=== PATIENT | female | born 1975 | race Caucasian/White ===

== ENCOUNTER 2020-08-09 14:53 | Emergency (ER) | payer MEDICAID, SELFPAY ==
--- NOTE | 2020-08-09 14:58 | HMH.EDGENADL ---
ED Disposition Clinical Impression: Viral illness Disposition: Home, Self-Care Condition on Discharge: Good Instructions: DI for Diarrhea and Traveler's Diarrhea -- Adult, DI for Diarrhea and Traveler's Diarrhea -- Child, DI for Nausea -- Adult, DI for Nausea -- Child Referrals: Maegan Hanley [Primary Care Provider] - 3 days - Critical Care Critical Care Time: No Attestation: On 08/09/20, the high probability of a clinically significant, sudden or life threatening deterioration of the following system(s) required my full and direct attention, intervention and personal management. The time I documented below is in addition to time spent performing reported procedures but includes the following listed in this critical care notation. Medical Decision Making - Telly Inquiry Pt receiving controlled substance: No Vital Signs: 08/09/20 15:02 Temperature 98.0 F Temperature Source Oral Pulse Rate [Radial] 98 H Respiratory Rate 18 Blood Pressure [Right Arm] 141/100 H Blood Pressure Mean [Right Arm] 113 Blood Pressure Source [Right Arm] Automatic Cuff Blood Pressure Position [Right Arm] Sitting 02 Sat by Pulse Oximetry 98 Oxygen Delivery Method Room Air Orders (Tests/Meds): ORDERS Category Date Time Status Full Resp Panel w/COVID ([facility]) Routine Lab 08/09/20 15:10 Received Medical Decision Narrative: 45yo F presents after Covid exposure with signs and symptoms concerning for Covid. Full respiratory viral panel has been obtained and sent to the lab. The patient is otherwise stable and appropriate for discharge home at this time. She will be discharged and we will call her with the results of her test. Also discussed with the patient the importance of using her COPD inhalers as directed as she is currently very wheezy. Patient reports she understands the importance of this and will try to do better. General Adult HPI - General Stated complaint: v/d, soa, cough Time Seen by Provider: 08/09/20 14:58 Mode of Arrival: Ambulatory Source of Information: Patient Limitations: No Limitations - History of Present Illness HPI narrative: 45yo F with COPD that continues to smoke roughly 1 pack/day presents the emergency department secondary to fever, nausea/vomiting/diarrhea, shortness of breath. Patient reports all of her coworkers have tested positive for coronavirus recently. Symptoms have been present since last weekend. Nothing is improving her condition. - Related Data Allergies Allergy/AdvReac Type Severity Reaction Status Date / Time No Known Allergies Allergy Verified 08/09/20 15:07 [facility] History - Hepatitis A Screen Drug use history?: No Attestation statement:: This patient has been screened for Hepatitis A risk factors. Medical History: Reports:: Chronic Obstructive Pulmonary Disease (COPD) ROS Obtained: Yes All systems reviewed & no additional complaints - Constitutional Constitutional: Reports anorexia, Reports body ache, Reports chills - Respiratory Respiratory: Yes shortness of breath - Gastrointestinal Gastrointestingal: Reports: abdominal pain, diarrhea, nausea, vomiting Physical Exam - General General appearance: alert, in no apparent distress - Head Head exam: atraumatic, normocephalic, normal inspection - Eye Eye exam: Present: normal appearance, PERRL, EOMI - ENT ENT exam: Present: normal exam, normal oropharynx, mucous membranes moist, normal external ear exam - Neck Neck exam: Present: normal inspection, full ROM, trachea midline. Absent: meningismus, lymphadenopathy - Respiratory Respiratory exam: Present: wheezes (Bilateral upper lobes) - Cardiovascular Cardiovascular exam: Present: regular rate, normal rhythm. Absent: JVD - Abdominal Exam Abdominal exam: Present: soft, normal bowel sounds. Absent: distention, tenderness, guarding - Extremities Exam Extremities exam: Present: normal inspection, full ROM, normal capillary refill. Absent: calf
[2020-08-09 15:02] VITALS: BP 141/100; PULSE 98; RESP 18; TEMP 36.7; O2SAT 98; BMI 23.5
[2020-08-09 15:18] LABS: Adenovirus,PCR Not Detected (NotDetected); Bordetella Pertussis Not Detected (NotDetected); Chlamydophila Pneumoniae, PCR Not Detected (NotDetected); Coronavirus 229E Not Detected (NotDetected); Coronavirus NL63 Not Detected (NotDetected); Coronavirus OC43 Not Detected (NotDetected); Coronovirus HKU1,PCR Not Detected (NotDetected); Human Metapneumovirus Not Detected (NotDetected); Influenza A, PCR Not Detected (NotDetected); Influenza AH1, 2009 Not Detected (NotDetected); Influenza AH1, PCR Not Detected (NotDetected); Influenza AH3,PCR Not Detected (NotDetected); Influenza B, PCR Not Detected (NotDetected); Mycoplasma Pneumoniae, PCR Not Detected (NotDetected); Parainfluenza 1, PCR Not Detected (NotDetected); Parainfluenza 2, PCR Not Detected (NotDetected); Parainfluenza 3, PCR Not Detected (NotDetected); Parainfluenza 4, PCR Not Detected (NotDetected); Respiratory Syncytial Virus Not Detected (NotDetected); Rhinovirus/Enterovirus Not Detected (NotDetected)
[2020-08-09 16:04] VITALS: BP 141/100; PULSE 98; RESP 18; TEMP 36.7; O2SAT 98
[2020-08-09 16:50] LABS: Coronavirus 19, PCR Detected (NotDetected)
== END 2020-08-09 16:05 | disposition home or self-care (01) ==
PROVIDERS: Emergency Provider Family Medicine; PCP Nurse Practitioner Family
DX: U07.1 COVID-19 (principal); J44.9 Chronic obstructive pulmonary disease, unspecified; F17.210 Nicotine dependence, cigarettes, uncomplicated; Z79.899 Other long term (current) drug therapy
CPT/HCPCS: 87581; 87633; 87798; 99282

== ENCOUNTER 2021-06-26 20:28 | Emergency (ER) | payer BC, SELFPAY ==
[2021-06-26 20:31] VITALS: BP 139/117; PULSE 91; RESP 16; TEMP 36.8; O2SAT 93; BMI 24.5
[2021-06-26 21:03] LABS: Coronavirus 19, PCR Not Detected (NotDetected); Influenza A, PCR Not Detected (NotDetected); Influenza B, PCR Not Detected (NotDetected)
[2021-06-26 22:00] VITALS: BP 131/89; PULSE 84; O2SAT 89
--- NOTE | 2021-06-26 22:08 | HMH.EDSOB ---
ED Disposition Clinical Impression: Viral pneumonia, Acute exacerbation of chronic obstructive airways disease Disposition: Home, Self-Care Condition on Discharge: Good Instructions: DI for Chronic Obstructive Pulmonary Disease Additional Instructions: fluids and call pcp for follow up Referrals: Maegan Hanley [Primary Care Provider] - Jose Feldman MD [Physician] - - Critical Care Critical Care Time: No Attestation: On 06/26/21, the high probability of a clinically significant, sudden or life threatening deterioration of the following system(s) required my full and direct attention, intervention and personal management. The time I documented below is in addition to time spent performing reported procedures but includes the following listed in this critical care notation. Medical Decision Making - Medical Records Medical records reviewed: Yes: I reviewed the patient's medical records. - Telly Inquiry Pt receiving controlled substance: No Vital Signs: 06/26/21 20:31 06/26/21 22:35 Temperature 98.3 F Temperature Source Oral Pulse Rate 86 Pulse Rate [Apical] 91 H Respiratory Rate 16 Blood Pressure [Left Arm] 139/117 H Blood Pressure Mean [Left Arm] 124 Blood Pressure Source [Left Arm] Automatic Cuff Blood Pressure Position [Left Arm] Sitting 02 Sat by Pulse Oximetry 93 L Oxygen Delivery Method Room Air - Lab Data Lab results reviewed: Yes: I reviewed the patient's lab results. Lab Results 06/26/21 20:40: SARS-CoV-2 (PCR) Not detected, Influenza A Untype (PCR) Not detected, Influenza Type B (PCR) Not detected 06/26/21 23:07: WBC 13.4 H, RBC 4.32, Hgb 14.0, Hct 41.3, MCV 95.8, MCH 32.3 H, MCHC 33.8, RDW 13.2, Plt Count 354, MPV 8.2, Neut % (Auto) 0.3 L, Lymph % (Auto) 86.4 H, [place] % (Auto) 13.0 H, Eos % (Auto) 0.0 L, Baso % (Auto) 0.3, Neut # (Auto) 0.0 L*, Lymph # (Auto) 11.6 H, [place] # (Auto) 1.7 H, Eos # (Auto) 0.0, Baso # (Auto) 0.0, Total Counted 100, Neutrophils % (Manual) 92 H, Band Neutrophils % 1.0, Lymphocytes % (Manual) 5 L, Monocytes % (Manual) 2, Platelet Estimate Normal, RBC Morphology Normal 06/26/21 23:07: Sodium 140, Potassium 4.0, Chloride 100, Carbon Dioxide 30, Anion Gap 14.0, BUN 13, Creatinine 0.80, Estimated Creat Clear 98, Estimated GFR 77, Est GFR ( Amer) 93, Glucose 132 H, Calcium 9.8, Total Bilirubin 0.4, AST 37 H, ALT 25, Alkaline Phosphatase 82, Troponin I < 0.01, NT-Pro-B Natriuret Pep 99.1, Total Protein 7.7, Albumin 4.7, Globulin 3.0, Albumin/Globulin Ratio 1.6 06/26/21 23:25: Chlamy pneumoniae PCR Not detected, Adenovirus (PCR) Not detected, B. pertussis DNA (PCR) Not detected, Coronavirus OC43 (PCR) Not detected, Coronavirus HKU1 (PCR) Not detected, Coronavirus 229E (PCR) Not detected, SARS-CoV-2 (PCR) Not detected, Coronavirus NL63 (PCR) Not detected, Human Metapneumovir PCR Detected A, Influenza A (H1) PCR Not detected, Influ A (H1N1/09) PCR Not detected, Influenza A (H3) PCR Not detected, Influenza Type A (PCR) Not detected, Influenza Type B (PCR) Not detected, M. pneumoniae (PCR) Not detected, Parainfluenza 1 (PCR) Not detected, Parainfluenza 2 (PCR) Not detected, Parainfluenza 3 (PCR) Not detected, Parainfluenza 4 (PCR) Not detected, RSV (PCR) Not detected, Entero/Rhino (PCR) Not detected 06/26/21 23:50: WBC 15.4 H, RBC 4.05 L, Hgb 12.9, Hct 38.6, MCV 95.2, MCH 31.7 H, MCHC 33.3, RDW 13.4, Plt Count 327, MPV 7.9, Neut % (Auto) 0.2 L, Lymph % (Auto) 86.6 H, [place] % (Auto) 12.7 H, Eos % (Auto) 0.0 L, Baso % (Auto) 0.4, Neut # (Auto) 0.0 L*, Lymph # (Auto) 13.3 H, [place] # (Auto) 2.0 H, Eos # (Auto) 0.0, Baso # (Auto) 0.1 06/27/21 00:00: ESR 21 H 06/27/21 00:00: Procalcitonin 0.108 06/27/21 00:00: C-Reactive Protein 11.9 H Result diagrams: 06/26/21 23:50 06/26/21 23:07 Orders (Tests/Meds): ED MEDICATIONS Discontinued Medications Generic Name Dose Route Start Last Admin Trade Name Freq PRN Reason Stop Dose Admin Furosemide 40 mg 06/26/21 22:51 06/26
[2021-06-26 22:35] VITALS: PULSE 86; PULSE 92
--- NOTE | 2021-06-26 22:36 | XR_ITS ---
PROCEDURE INFORMATION: Exam: XR Chest Exam date and time: 06/26/2021 10:36 PM Age: 46 years old Clinical indication: Cough and shortness of breath; Smoker's cough; Patient HX: SOA, cough, smoker, recent dx of resp infection TECHNIQUE: Imaging protocol: XR of the chest. Views: 2 views. COMPARISON: No relevant prior studies available. FINDINGS: Lungs: Subtle interstitial haziness could reflect interstitial pneumonia. No consolidation. Pleural spaces: Unremarkable. No pleural effusion. No pneumothorax. Heart/Mediastinum: Unremarkable. No cardiomegaly. Bones/joints: Unremarkable. IMPRESSION: Subtle interstitial haziness could reflect interstitial pneumonia.
[2021-06-26 23:00] VITALS: BP 133/76; PULSE 94; RESP 20; O2SAT 98
[2021-06-26 23:19] LABS: Basophils % 0.3 % (0.1-2.0); Chloride 100 mmol/L (98-107); Hematocrit 41.3 % (37.0-47.0); Lymphocytes # 11.6 K/mm3 (0.7-4.5); Lymphocytes % 86.4 % (10-50); Mean Corpuscular HGB Conc 33.8 g/dL (31.8-35.4); Mean Corpuscular Hemoglobin 32.3 pg (27.0-31.2); Mean Corpuscular Volume 95.8 fl (81-99); Mean Platelet Volume 8.2 fl (7.4-10.4); Monocytes # 1.7 K/mm3 (0.1-1.0); Platelet Count 354 K/mm3 (142-424); Red Blood Count 4.32 M/mm3 (4.20-5.40); Red Cell Distribution Width 13.2 % (11.5-17.5); White Blood Count 13.4 K/mm3 (4.8-10.8)
[2021-06-26 23:20] LABS: MANUAL DIFFERENTIAL MANUAL DIFFERENTIAL (MANUAL DIFF); Neutrophils % 0.3 % (37.0-80.0); Sodium 140 mmol/L (136-145)
[2021-06-26 23:22] LABS: Alanine Aminotransferase 25 U/L (12-78); Aspartate Amino Transferase 37 U/L (14-36); Blood Urea Nitrogen 13 mg/dl (7-17); Creatinine Clearance Estimated 98 mL/min (50-200); Estimated Glomerular Filt Rate 77 ml/min (>60); GFR (African American) 93 ML/MIN (>60)
[2021-06-26 23:23] LABS: Albumin Level 4.7 g/dl (3.5-5.0); Albumin/Globulin Ratio 1.6 (1.1-1.8); Alkaline Phosphatase 82 U/L (38-126); Bilirubin,Total 0.4 mg/dl (0.2-1.3); Calcium 9.8 mg/dl (8.4-10.2); Carbon Dioxide 30 mmol/L (22.0-30.0); Glucose 132 mg/dl (74-100); Total Protein,Serum 7.7 g/dl (6.3-8.2)
[2021-06-26 23:32] LABS: Adenovirus,PCR Not Detected (NotDetected); Bordetella Pertussis Not Detected (NotDetected); Chlamydophila Pneumoniae, PCR Not Detected (NotDetected); Coronavirus 19, PCR Not Detected (NotDetected); Coronavirus 229E Not Detected (NotDetected); Coronavirus NL63 Not Detected (NotDetected); Coronavirus OC43 Not Detected (NotDetected); Coronovirus HKU1,PCR Not Detected (NotDetected); Influenza A, PCR Not Detected (NotDetected); Influenza AH1, 2009 Not Detected (NotDetected); Influenza AH1, PCR Not Detected (NotDetected); Influenza AH3,PCR Not Detected (NotDetected); Influenza B, PCR Not Detected (NotDetected); Mycoplasma Pneumoniae, PCR Not Detected (NotDetected); Parainfluenza 1, PCR Not Detected (NotDetected); Parainfluenza 2, PCR Not Detected (NotDetected); Parainfluenza 3, PCR Not Detected (NotDetected); Parainfluenza 4, PCR Not Detected (NotDetected); Respiratory Syncytial Virus Not Detected (NotDetected); Rhinovirus/Enterovirus Not Detected (NotDetected)
[2021-06-26 23:32] LABS: NT Pro Brain Natriuretic Pep. 99.1 pg/mL (0-125)
[2021-06-27] VITALS: BP 124/75; PULSE 86; RESP 18; O2SAT 90
[2021-06-27] LABS: Basophils # 0.1 K/mm3 (0-0.2); Basophils % 0.4 % (0.1-2.0); Hematocrit 38.6 % (37.0-47.0); Hemoglobin 12.9 g/dL (12.2-16.2); Lymphocytes # 13.3 K/mm3 (0.7-4.5); Lymphocytes % 86.6 % (10-50); Mean Corpuscular HGB Conc 33.3 g/dL (31.8-35.4); Mean Corpuscular Hemoglobin 31.7 pg (27.0-31.2); Mean Corpuscular Volume 95.2 fl (81-99); Mean Platelet Volume 7.9 fl (7.4-10.4); Monocytes % 12.7 % (1.7-9.3); Platelet Count 327 K/mm3 (142-424); Red Blood Count 4.05 M/mm3 (4.20-5.40); Red Cell Distribution Width 13.4 % (11.5-17.5); White Blood Count 15.4 K/mm3 (4.8-10.8)
[2021-06-27 00:02] LABS: Troponin I < 0.01 ng/ml (0.00-0.034)
[2021-06-27 00:04] LABS: Neutrophils % 0.2 % (37.0-80.0)
[2021-06-27 00:21] LABS: Lymphocytes % 5 % (10-50); Monocytes % 2 % (2-9); Neutrophils % 92 % (42-76); Total Cells Counted 100
[2021-06-27 00:22] LABS: Platelet Estimate Normal; RBC Morphology Normal
--- NOTE | 2021-06-27 00:35 | CT_ITS ---
PROCEDURE INFORMATION: Exam: CTA Chest With Contrast Exam date and time: 06/27/2021 12:35 AM Age: 46 years old Clinical indication: Cough and shortness of breath; Smoker's cough; Patient HX: SOA, cough, smoker, recent diagnosed with a respiratory infection TECHNIQUE: Imaging protocol: Computed tomographic angiography of the chest with contrast. 3D rendering (Not supervised by radiologist): MIP and/or 3D reconstructed images were created by the technologist. Radiation optimization: All CT scans at this facility use at least one of these dose optimization techniques: automated exposure control; mA and/or kV adjustment per patient size (includes targeted exams where dose is matched to clinical indication); or iterative reconstruction. Contrast material: ISOVUE 370; Contrast volume: 70 ml; Contrast route: INTRAVENOUS (IV); COMPARISON: CR XR CHEST 2V 06/26/2021 10:30 PM FINDINGS: Pulmonary arteries: Normal. No pulmonary emboli. Aorta: Unremarkable. No aortic aneurysm. No aortic dissection. Lungs: Lungs reveal subtle ground-glass opacities in the right middle lobe and left upper lobe. In the bilateral lower lobes there are reticulonodular opacities diffusely and these findings are all concerning for pneumonia. Pleural spaces: Unremarkable. No pneumothorax. No pleural effusion. Heart: Unremarkable. No cardiomegaly. No pericardial effusion. Lymph nodes: Unremarkable. No enlarged lymph nodes. Bones/joints: Unremarkable. No acute fracture. Soft tissues: Unremarkable. IMPRESSION: 1. No pulmonary embolism. 2. Bilateral mid and lower lung zone pneumonia.
[2021-06-27 01:00] LABS: Human Metapneumovirus Detected (NotDetected)
[2021-06-27 01:38] LABS: C-Reactive Protein 11.9 mg/L (0-4)
[2021-06-27 01:57] LABS: Procalcitonin 0.108 ng/mL (0.0-2.0)
[2021-06-27 02:00] LABS: Erythrocyte Sedimentation Rate 21 mm/hr (0-20)
[2021-06-27 02:17] VITALS: BP 117/77; PULSE 84; RESP 20; TEMP 36.7; O2SAT 92
[2021-06-27 02:36] LABS: Troponin I < 0.01 ng/ml (0.00-0.034)
[2021-06-28 23:25] LABS: Peripheral Smear Review Scanned Result
== END 2021-06-27 02:26 | disposition home or self-care (01) ==
PROVIDERS: Emergency Provider Emergency Medicine; PCP Nurse Practitioner Family
DX: J12.9 Viral pneumonia, unspecified (principal); J44.1 Chronic obstructive pulmonary disease with (acute) exacerbation; F17.210 Nicotine dependence, cigarettes, uncomplicated; Z20.822 Contact with and (suspected) exposure to COVID-19
CPT/HCPCS: 71046; 71275; 80053; 83880; 84145; 84484; 85007; 85025; 85651; 86140; 87040; 87581; 87632; 87798; 96374; 96375; 99284; C9803; Q9967; U0003; U0005

== ENCOUNTER 2021-07-20 20:18 | Emergency (ER) | payer BC, SELFPAY ==
[2021-07-20 20:56] VITALS: BP 144/87; PULSE 97; RESP 14; TEMP 36.9; O2SAT 99; BMI 23.5
--- NOTE | 2021-07-20 21:28 | HMH.EDUTC ---
[facility] [place]ression: [place]al syndrome Disposition: Home, Self-Care Condition on Discharge: Good Instructions: Hand, Foot, and Mouth Disease, DI for Rash Additional Instructions: Start the steroids in the morning. Don't put the topical steroids (triamcinolone) on your face or your groin. Follow up with your regular doctor. GO TO THE ER FOR ANY WORSENING SYMPTOMS OR CONCERNS Prescriptions: methylPREDNISolone [Medrol] 4 mg PO DIRECTED 6 Days #21 packet Transmission Status: Received by [id number] Triamcinolone Acetonide 1 applicatio TP TIDP PRN 7 Days #1 gm PRN Reason: Itching Transmission Status: Received by [id number] Referrals: Maegan Hanley [Primary Care Provider] - Forms: Work/School Release Time of Disposition: 22:01 Medical Decision Making - Medical Records Medical records reviewed: No: I reviewed the patient's medical records. - Telly Inquiry Pt receiving controlled substance: No Vital Signs: 07/20/21 20:56 07/20/21 22:08 Temperature 98.4 F 98.4 F Temperature Source Oral Pulse Rate 97 H Pulse Rate [Left] 97 H Respiratory Rate 14 14 Blood Pressure 144/87 H Blood Pressure [Right Arm] 144/87 H Blood Pressure Mean [Right Arm] 106 02 Sat by Pulse Oximetry 99 - Lab Data Lab results reviewed: Yes: I reviewed the patient's lab results. [facility] [place] - General Stated complaint: itchy rash on hands and feet Time Seen by Provider: 07/20/21 21:28 Mode of Arrival: Ambulatory Source of Information: Patient Limitations: No Limitations Description of Symptoms (Recalled from Triage Doc. by RN): pt presents with what appears to be insect bites. they are present on pts face, L leg, hands, feet, two on her face on one on her neck. pt states the areas itch and started two days ago. pt states she went to [place] last week but denies presence of bed bugs. HEENT Symptoms (Recalled from RN notes): No Resp Symptoms (Recalled from RN notes): No Skin Symptoms (Recalled from RN notes): Yes MS Symptoms (Recalled from RN notes): No Functional Status (Recalled from RN notes): wnl - History of Present Illness Provider Complaint: She has several spots on her that are itching and raised up. She states they started about 2 days ago. She denies any known contact with hand foot and mouth disease. She denies any fever, chills or sore throat, but she did feel bad and kind of feel like she was getting a virus before these spots came up. - Related Data Previous Rx's Medication Instructions Recorded Triamcinolone Acetonide 1 applicatio TP TIDP PRN 7 Days #1 07/20/21 gm methylPREDNISolone [Medrol] 4 mg PO DIRECTED 6 Days #21 07/20/21 packet Allergies Allergy/AdvReac Type Severity Reaction Status Date / Time No Known Allergies Allergy Verified 08/09/20 15:07 - Worker's Comp Is this a Worker's Comp case?: No [facility] History - Hepatitis A Screen Drug use history?: No High risk sexual behaviors?: No History of sexually transmitted infection?: No Currently employed?: No Childcare worker?: No Do you have indoor plumbing?: Yes Do you have electricity?: Yes Attestation statement:: This patient has been screened for Hepatitis A risk factors. I have reviewed the patient's past medical history: Yes Medical History: Reports:: Chronic Obstructive Pulmonary Disease (COPD) - Social History Smoking Status: Current every day smoker Tobacco Type: cigarettes # Packs/Day (cigarettes): 1 Alcohol Intake: never Occupational Status: employed ROS Obtained: Yes All systems reviewed & no additional complaints - Constitutional Constitutional: Denies chills, Denies fever(s) - Eyes Eyes: Denies eye discharge - ENT Ears, Nose, Mouth, and Throat: Denies dizziness, Denies otalgia, Denies sore throat - Cardiovascular Cardiovascular: Denies chest pain - Respiratory Respiratory: Denies chest congestion, Denies cough, Denies dyspnea, Denies stridor, Denies wh
[2021-07-20 22:08] VITALS: BP 144/87; PULSE 97; RESP 14; TEMP 36.9
== END 2021-07-20 22:09 | disposition home or self-care (01) ==
PROVIDERS: Emergency Provider Nurse Practitioner Family; PCP Nurse Practitioner Family
DX: B34.9 Viral infection, unspecified (principal); R21 Rash and other nonspecific skin eruption; J44.9 Chronic obstructive pulmonary disease, unspecified; F17.210 Nicotine dependence, cigarettes, uncomplicated
CPT/HCPCS: 99202; G0463